=== PATIENT | male | born 1970 ===

== ENCOUNTER 2019-08-02 06:10 | Emergency (ER) | payer MEDICAID, OTHER ==
--- NOTE | 2019-08-02 07:36 | EDM.PDOC ---
ED HPI GENERAL MEDICAL PROBLEM - General Chief Complaint: Back Pain or Injury Stated Complaint: BACK PAIN, DRY SKIN Time Seen by Provider: 08/02/19 07:27 Source of Information: Reports: Patient History Limitations: Reports: No Limitations - History of Present Illness INITIAL COMMENTS - FREE TEXT/NARRATIVE: This 48 year old male presents to the ED with a chief complaint of chronic lower back on the right for several years. He denies injury but states that he works out on a daily bases. He denies any urinary symptoms and has never had a cath placed in his penis. He complains of movement of his upper torso causes more pain in his right lower back. Onset: Gradual (several years) Duration: Chronic Location: Reports: Back Severity: Mild (to moderate) Improves with: Reports: Rest Worsens with: Reports: Movement Treatments CORPORATE REPRESENTATIVE: Reports: NSAIDS Lower Back Pain Score (Numeric/FACES): 7 - Related Data Allergies Allergy/AdvReac Type Severity Reaction Status Date / Time No Known Allergies Allergy Verified 08/02/19 06:11 Home Meds: Home Meds Methocarbamol [Robaxin-750] 750 mg PO Q8HR PRN 7 Days #21 tablet 08/02/19 [Rx] predniSONE [Prednisone] 10 mg PO ASDIRECTED 3 Days #6 tab.ds.[email or web address] 08/02/19 [Rx] Past Medical History HEENT History: Reports: None Cardiovascular History: Reports: None Gastrointestinal History: Reports: None Genitourinary History: Reports: None Musculoskeletal History: Reports: RA Neurological History: Reports: None Psychiatric History: Reports: None Endocrine/Metabolic History: Reports: None Hematologic History: Reports: None Immunologic History: Reports: None Oncologic (Cancer) History: Reports: None Dermatologic History: Reports: Eczema - Infectious Disease History Infectious Disease History: Reports: None - Past Surgical History Head Surgeries/Procedures: Reports: None Social & Family History - Tobacco Use Smoking Status *Q: Former Smoker Used Tobacco, but Quit: Yes Month/Year Tobacco Last Used: 2019 - Recreational Drug Use Recreational Drug Use: Yes Drug Use in Last 12 Months: Yes Recreational Drug Type: Reports: Marijuana/Hashish Recreational Drug Use Frequency: Weekly ED ROS GENERAL - Review of Systems Review Of Systems: See Below Constitutional: Reports: No Symptoms HEENT: Reports: No Symptoms Respiratory: Reports: No Symptoms Cardiovascular: Reports: No Symptoms Endocrine: Reports: No Symptoms GI/Abdominal: Reports: No Symptoms : Reports: No Symptoms. Denies: Frequency, Hematuria, Incontinence, Urgency Musculoskeletal: Reports: Back Pain (right lower back) Skin: Reports: No Symptoms Neurological: Reports: No Symptoms ED EXAM,LOWER BACK PAIN/INJURY - Physical Exam Exam: See Below Exam Limited By: No Limitations General Appearance: Alert, WD/WN, No Apparent Distress Eye Exam: Bilateral Eye: EOMI, Normal Inspection, PERRL Ears: Normal External Exam, Normal Canal, Hearing Grossly Normal, Normal TMs Nose: Normal Inspection, Normal Mucosa, No Blood Throat/Mouth: Normal Inspection, Normal Lips, Normal Teeth, Normal Gums, Normal Oropharynx, Normal Voice, No Airway Compromise Head: Atraumatic, Normocephalic Neck: Normal Inspection, Supple, Non-Tender, Full Range of Motion Respiratory/Chest: No Respiratory Distress, Lungs Clear, Normal Breath Sounds, No Accessory Muscle Use, Chest Non-Tender Cardiovascular: Normal Peripheral Pulses, Regular Rate, Rhythm, No Edema, No Gallop, No JVD, No Murmur, No Rub GI/Abdominal: Normal Bowel Sounds, Soft, Non-Tender, No Organomegaly, No Distention, No Abnormal Bruit, No Mass (Male) Exam: No Hernia, Normal Inspection. No: Hernia, Scrotal Swelling Back Exam: Normal Inspection, Full Range of Motion, Decreased Range of Motion ( in all planes with terminal pain.) Extremities: Normal Inspection, Normal Range of Motion, Non-Tender, No Pedal Edema, Normal Capillary Refill Neurological: Alert, Normal Mood/Affect, Normal Dorsiflexion, CN II-XII Intact, Normal Plantar Flexion, Normal Gait, Normal Reflexes, No Motor/Sensory Deficits , Oriented x 3 DTR - Lower Extremities: 3+: Knee (R), Ankle (R), Ankle (L), 4+: Knee (L) Lymphatic: No Adenopathy Course - Vital Signs Text/Narrative:: I reviewed the patient X-ray of the lumbar spine. No acute pathology. His UA is negative. The patient will be discharged with Prednisone and Robaxin. No work for two days. The patient agrees with the discharge plan. Last Recorded V/S: Last Vital Signs Temp 98.2 F 08/02/19 06:26 Pulse 67 08/02/19 06:26 Resp 18 08/02/19 06:26 BP 187/100 H 08/02/19 06:26 Pulse Ox 97 08/02/19 06:26 - Orders/Labs/Meds Orders: Active Orders 24 hr Category Date Time Status predniSONE Med 08/02/19 08:00 Active 40 mg PO STAT Medication Orders Prednisone (Prednisone) 40 mg PO STAT ANDRÉS Last Admin: 08/02/19 08:40 Dose: 40 mg Labs: Laboratory Tests 08/02/19 Range/Units 06:20 Urine Color YELLOW Urine Appearance CLEAR Urine pH 6.0 (5.0-8.0) Ur Specific Childs >= 1.030 (1.001-1.035) Urine Protein NEGATIVE (NEGATIVE) mg/dL Urine Glucose (UA) NEGATIVE (NEGATIVE) mg/dL Urine Ketones NEGATIVE (NEGATIVE) mg/dL Urine Occult Blood NEGATIVE (NEGATIVE) Urine Nitrite NEGATIVE (NEGATIVE) Urine Bilirubin NEGATIVE (NEGATIVE) Urine Urobilinogen 0.2 (<2.0) EU/dL Ur Leukocyte Esterase NEGATIVE (NEGATIVE) Meds: Medications Generic Name Dose Route Start Last Admin Trade Name Freq PRN Reason Stop Dose Admin Prednisone 40 mg 08/02/19 08:00 08/02/19 08:40 Prednisone PO 40 mg STAT ANDRÉS Administration Departure - Departure Time of Disposition: 09:08 Disposition: Home, Self-Care 01 Clinical Impression: Lumbar disc disease Muscle strain of right wrist Qualifiers: Encounter type: initial encounter Qualified Code(s): S66.911A - Strain of unspecified muscle, fascia and tendon at wrist and hand level, right hand, initial encounter - Discharge Information *PRESCRIPTION DRUG MONITORING PROGRAM REVIEWED*: Yes *COPY OF PRESCRIPTION DRUG MONITORING REPORT IN PATIENT KELSIE: Yes Referrals: Leelee Bennett MD [Primary Care Provider] - Forms: ED Department Discharge, ED Return to Work/School Form Additional Instructions: Take all medications as directed. No work for three days. Rest for the next 2 days. Do stretching exercises before doing work out or working. Warm compress to the lower back jaya for the next two days. Follow up with your PCP in the next two to four days. Return to the ED if your condition gets worse. The following information is given to patients seen in the emergency department who are being discharged to home. This information is to outline your options for follow-up care. We provide all patients seen in our emergency department with a follow-up referral. The need for follow-up, as well as the timing and circumstances, are variable depending upon the specifics of your emergency department visit. If you don't have a primary care physician on staff, we will provide you with a referral. We always advise you to contact your personal physician following an emergency department visit to inform them of the circumstance of the visit and for follow-up with them and/or the need for any referrals to a consulting specialist. The emergency department will also refer you to a specialist when appropriate. This referral assures that you have the opportunity for follow-up care with a specialist. All of these measure are taken in an effort to provide you with optimal care, which includes your follow-up. Under all circumstances we always encourage you to contact your private physician who remains a resource for coordinating your care. When calling for follow-up care, please make the office aware that this follow-up is from your recent emergency room visit. If for any reason you are refused follow-up, please contact the [facility] Emergency Department at and asked to speak to the emergency department charge nurse. Sepsis Event Note - Evaluation Sepsis Screening Result: No Definite Risk - Focused Exam Vital Signs: Vital Signs Temp Pulse Resp BP Pulse Ox 08/02/19 06:26 98.2 F 67 18 187/100 H 97 Date Exam was Performed: 08/02/19 Time Exam was Performed: 09:05 - My Orders Last 24 Hours: My Active Orders 08/02/19 08:00 predniSONE 40 mg PO STAT - Assessment/Plan Last 24 Hours: My Active Orders 08/02/19 08:00 predniSONE 40 mg PO STAT
[2019-08-02] MEDS ORDERED: predniSONE 10 MG Tab PO SCH (08:00)
--- NOTE | 2019-08-02 08:17 | CR ---
Lumbar spine: AP, lateral and coned-down lateral views centered to the lumbosacral junction were obtained. Comparison: No prior lumbar spine imaging. Vertebral body heights and disc spaces are maintained. Minimal endplate osteophytes are noted within L4. Pedicles are intact. Visualized transverse and spinous processes are intact. Joint spaces within the hips are preserved. Sacroiliac joints appear within normal limits. No subluxation or fracture is appreciated. Impression: 1. Minimal endplate osteophytes within L4. 2. Three-view lumbar spine study is otherwise unremarkable. Diagnostic code #2 This report was dictated in [place] Standard Time
== END 2019-08-02 09:37 | disposition home or self-care (01) ==
LOC: MW.ED 06:10
DX: S66.911A Strain of unspecified muscle, fascia and tendon at wrist and hand level, right hand, initial encounter (principal); M51.9 Unspecified thoracic, thoracolumbar and lumbosacral intervertebral disc disorder; X58.XXXA Exposure to other specified factors, initial encounter
CPT/HCPCS: 72100; 81003; 99283; A9270